=== PATIENT | female | born 1925 | race Caucasian/White ===

== ENCOUNTER 2016-09-18 20:36 | Inpatient (IN) ==
[2016-09-19] MEDS: ALPRAZolam 1 MG TABLET PO PRN ×2 (03:51→19:41)
[2016-09-19] MEDS: *HR* Heparin 5,000 UNIT/ML VIAL SQ SCH ×2 (06:22→16:04)
[2016-09-19 06:32] LABS: BUN/Creatinine Ratio 23 (6-26); Blood Urea Nitrogen 19 mg/dL (7-20); Carbon Dioxide 27 mEq/L (19-29); Chloride 99 mEq/L (98-109); Glucose 102 mg/dL (70-99); Osmolality,Calculated 288 (280-300); Potassium 3.8 mEq/L (3.5-4.5); Sodium 138 mEq/L (136-145); eGFR For African Americans > 60 (> 60); eGFR For Non-African Americans > 60 (> 60)
[2016-09-19] MEDS ORDERED: Isosorbide MONOnitrate (24 HR) 30 MG TAB.ER.24H PO SCH (09:00)
[2016-09-19] MEDS: *HR* Amiodarone 200 MG TABLET PO SCH (09:42)
[2016-09-19] MEDS: Furosemide 40 MG/4 ML VIAL IVP SCH ×2 (09:42→16:04)
[2016-09-19] MEDS: Aspirin Enteric Coated 81 MG Tablet PO SCH (09:42)
--- NOTE | 2016-09-19 10:52 | ECHO - Doppler Report ---
Echocardiogram Name: Huong Scott Date of Study: 09/19/2016 Date: 1925 Ht: 61.0 in Medical Record#: [id number] Age: 89 Wt: 104.0 lb Gender: Female BSA: 1.43 Order #: [id number] Location: [facility] Room #: [id number] Reading Physician: Kady Pal DO Questioned Documents Examiner: Koffi Sanchez RN Ordering Physician: Tammy Anglin DO Primary Physician: Marbin Penn MD Indications: Congestive heart failure Impressions: LVEF 35%. Moderate global reduction in LV systolic function with increased LV wall thickness. Increased LV filling pressures. RV size appears normal. RV function is hypokinetic. Severe left atrial enlargement. Severe eccentric mitral regurgitation. Severe low gradient aortic stenosis. Mild pulmonic regurgitation. No pulmonary hypertension, although TR gradient is suboptimally obtained. Pleural effusion. Abnormal findings communicated to Dr. Hearn. Left Ventricular Wall Motion: Rest Echo Findings The apex, apical inferior, mid inferior, basal inferior, apical anterior, mid anterior, basal anterior, apical septal, mid inferior septal, basal inferior septal, apical lateral, mid anterior lateral, basal anterior lateral, mid anterior septal, mid inferior lateral, basal anterior septal and basal inferior lateral cisneros were hypokinetic. Findings: Study Quality * Technically adequate exam. ECG Findings * Normal sinus rhythm. Left Ventricle * LVEF 35%. * Increased LV wall thickness; not well measured on PLAX. * Increased LV filling pressures. Mitral Valve * No mitral stenosis. * Mild mitral annular calcification * Severe eccentric mitral regurgitation. Aortic Valve * Moderately calcified AV leaflets with severe reduction in leaflet excursion. * Severe low gradient aortic stenosis. MG 12 mmHg, DI 0.21, PRAVIN 0.66 cm2 * Trace aortic regurgitation. Aorta * Normally sized aortic root. Tricuspid Valve * Normal tricuspid valve structure. * Mild tricuspid regurgitation which may be underestimated. * Estimated RA pressure is 3 mmHg. * Estimated RVSP is 24 mmHg. * No pulmonary hypertension. Pulmonic Valve * Pulmonic valve is not well visualized. * No pulmonic stenosis. * Mild pulmonic regurgitation. Pulmonary Artery * Pulmonary artery not well visualized. Right Atrium * Normal right atrial size. Left Atrium * Severely dilated left atrium. Interatrial Septum * No evidence of PFO by color Doppler. IVC * Normal IVC dimensions and inspiratory collapse. Pericardium * Trivial anterior pericardial effusion. Right Ventricle * RV is normal in size. The distal segments are poorly visualized. The mid portion of the RV appears hypokinetic. Reduced Lat S Jef. History Years 25 Packs 1.5 Family History of CAD Congestive Heart Failure 09/21/2011 a Previous Echo was performed. Measurements: BP: 169/ 88 2D Normal Values IVSd: 1.10 cm 0.6 - 1.0 cm LVIDd: 5.20 cm 3.7 - 5.6 cm LVPWd: 1.10 cm 0.6 - 1.1 cm LVIDs: 3.90 cm 1.5 - 3.6 cm LA: 5.00 cm 2.0 - 4.0cm %FS: 23.50 cm >25 % LVOT Diam: 1.90 cm LA volume: 141 Mitral Valve Peak Velocity 1.41 m/sec Mean Velocity:.60 m/sec Peak Grad:8.00 mmHg Mean Grad:2.00 mmHg Valve Area:1.14 cm2 Peak E:.85 m/sec Peak A:.47 m/sec E/A Ratio:1.8 Peak E' Lat Jef:5.56 cm/s Peak E' Med Jef:2.73 cm/s E/E' Lat Ratio:15.4 E/E' Med Ratio:31.3 LVOT Peak Jef:.69 m/sec Mean Jef:.44 m/sec Peak Grad:2.00 mmHg Mean Grad:1.00 mmHg Aortic Valve Peak Jef:2.48 m/sec Mean Jef:1.64 m/sec Peak Grad:25.00 mmHg Mean Grad:12.00 mmHg Valve Area:.74 cm2 AI pressure Half-time: 762.00 msec Tricuspid Valve TV Regurg Peak Grad: 21.00mmHg TV Regurg Peak Jef: 2.31m/sec Updated by Kady Pal on 09/19/2016 10:04:07 AM electronically signed on 09/19/2016 10:49:12 AM with status of Final Wall Motion Sigala: 1=Normal, 2=Hypokinesis, 3=Akinesis, 4=Dyskinesis, 5=Aneurysmal, 6=Hyperkinetic, X=Not Visualized (Blank)=Missing
--- NOTE | 2016-09-19 14:47 | Cardiology Consult Note ---
Date of Encounter: 09/19/16 Time of Encounter: 14:37 Assessment and Plan (1) Acute systolic (congestive) heart failure Current Visit: Yes Status: Acute EF previously 50-55% in 2011. Echo this admission EF reduced to 35%, moderate global reduction in LV systolic function. Increased LV filling pressures. RV hypokinetic. Severely enlarged LA. Severe eccentric MR, severe low gradient , mild MI, no pulmonary hypertension , pleural effusion. BNP 4277. CXR with new moderate bilateral pleural effusions. Symptoms of worsening dyspnea, lower extremity edema. Recommend IV diuresis. Agree with 40mg Lasix IV BID. Recommend strict I/Os, Na and fluid restriction, daily weights. [facility] in 2012 minimal CAD. CHF/newly reduced EF likely secondary to her valvular disease/nonischemic. Discussed options of palliative/medical management vs. evaluation at tertiary facility ([facility]) regarding TAVR and MitraClip as outpt. Pt would like to think about it. Will also discuss with Dr. Jacy Pelletier for further recommendations. If pt decides on medical management, will consult palliative care. Continue BB and RAMILA-I. (2) Severe aortic stenosis Current Visit: Yes Status: Acute Low gradient severe on echo. MG 12mmHg, DI 0.21, PRAVIN 0.66cm2. Likely culprit of pt's syncope. Likely a poor candidate for surgical repair given her advanced age. Possibly candidate for TAVR. Discussed if she would be interested in pursuing this as outpt at tertiary facility. Pt considering. If she declines, will consult palliative. (3) Severe mitral regurgitation Current Visit: Yes Status: Acute Severe MR noted on echo. Could appear severe from and current CHF exacerbation. Poor surgical candidate, but would possibly be a candidate for MitraClip at tertiary facility. Pt considering if she wants this evaluation. (4) Atrial fibrillation Current Visit: No Status: Acute Records reviewed--appears to have been diagnosed 03/2016. On Amiodarone 200mg daily since that time. Telemetry review shows pt is maintaining SR. CHADSVASC score 7 (Age, HTN, CHF, Female). High falls risk given syncopal events and advanced age. Would recommend ASA only for now. Qualifiers: Atrial fibrillation type: paroxysmal Qualified Code(s): I48.0 - Paroxysmal atrial fibrillation (5) Chest pain Current Visit: Yes Status: Acute Exertional chest pain in setting of acute systolic CHF, Severe and severe MR. LHC 2012 minimal CAD. Does not require a repeat LHC at this time. If pt chooses to be evaluate for TAVR and possible MitraClip, tertiary facility would determine if LHC is warranted at that time in the pre-operative setting. On low dose nitrate. Will not increase given severe . Qualifiers: Chest pain type: unspecified Qualified Code(s): R07.9 - Chest pain, unspecified (6) Syncope Current Visit: No Status: Acute 2 episodes. Most recent 3 weeks ago. Likely related to severe . Plan as above. Medical management/palliative discussed vs. proceeding with evaluation at tertiary facility to discuss TAVR and possible MitraClip. Pt considering. Qualifiers: Syncope type: unspecified Qualified Code(s): R55 - Syncope and collapse (7) Elevated troponin Current Visit: No Status: Acute Borderline 3rd troponin of 0.04 in setting of acute CHF exacerbation and severe valvular dysfunction. Nondiagnostic for ACS. Secondary to demand ischemia. (8) Cardiomyopathy Current Visit: Yes Status: Acute EF 35%, likely nonischemic, related to severe valvular disease, but ischemic cause not ruled out. [facility] 2012 minimal CAD. BB, RAMILA-I. No LHC warranted at this time. If decides to pursue evaluation for valvular dysfunction, tertiary facility can decide if LHC is necessary. Qualifiers: Cardiomyopathy type: unspecified Qualified Code(s): I42.9 - Cardiomyopathy , unspecified Discussion w patient/family: The assessment and plan as outlined above was discussed with the patient and/or family members who expressed understanding and agreement. All questions were answered. Thank you for involving us in the care of your patient. Please call with any questions. I will discuss all the above with Dr. Jacy Pelletier and make changes as necessary. History of Present Illness Consult date: 09/19/16 Requesting physician: Reymundo Hearn Consult reason: CHF, valvular heart disease Chief complaint: Dyspnea, chest pain History of present illness: Ms. Scott is a 89 year old female with PMH of LLL carcinoma s/p LLL lobectomy, minimal CAD on LHC in 2011, HTN, HLD, anxiety, A-Fib on Amiodarone, PNA, CVA, TIA. She reported to [facility] earlier on the 10th, for fatigue, lightheadedness, dizziness, dyspnea and chest pain. She left AMA for a court date on the , then represented that evening after her court date. She admits to worsening dyspnea over the past 2 weeks, dizziness upon standing. She reports chest pain that started 5 days ago, sharp in nature, worse with exertion and improved with rest. Reports 7 lb weight gain last month, but lost 6 lbs this month. Chest pain free currently. She reports 2 syncopal episodes, most recent 3 weeks ago, which she can not recall any details of other than it was around 2AM when going to the bathroom. Reports lower extremity edema over the past month. She was found to have elevated BNP--4277 and CXR demonstrated cardiomegaly with new moderate bilateral pleural effusions and interstitial pulmonary edema suggestive of moderate CHF. Underlying consolidation from PNA in lung bases cannot be excluded. EF previously preserved in 2011. Echo resulted today shows decrease in EF to 35%, moderate global reduction in LV systolic function. Increased LV filling pressures. RV hypokinetic. Severely enlarged LA. Severe eccentric MR, severe low gradient , mild MI, no pulmonary hypertension, pleural effusion. Pt lives at home alone. is in a [place] [facility]. Reports friends help her with meals and a neighbor spends the night with her often. Past CV testing: [facility] 11/09/11: Mild-moderate pulmonary hypertension, minimal atherosclerotic CAD, EF 50-55%. Past Med Surg Social Fam HX - Past Medical History Medical history: arthritis, cancer, CHF, COPD, coronary artery disease, GERD, hyperlipidemia, hypertension, TIA Psychiatric history: anxiety - Past Surgical History Surgical History: orthopedic, other, other - Social History Smoking Status: Former smoker Smokeless Tobacco Status: No Alcohol use: occasionally Drug use: none - Family History Mother Living Status: Hx Family Cancer: Yes Father Name: Anand Ruiz Living Status: Age at : 79 Cause of : cancer Hx Family Cancer: Yes Medications and Allergies Aspirin [Lo-Dose Aspirin EC] 81 mg PO DAILY 03/11/16 [History] TraZODone 100 mg PO HS #0 tablet 03/15/16 [Rx] Amoxicillin [Amoxil] 500 mg PO TID #30 capsule 09/17/16 [Rx] Alprazolam [Xanax 1 MG Tablet] 2 mg PO HS #0 tablet 09/18/16 [Rx] Amiodarone [Cordarone] 200 mg PO DAILY 09/19/16 [History] Furosemide [Lasix] 10 mg PO DAILY 09/19/16 [History] Lisinopril 2.5 mg PO DAILY 09/19/16 [History] Metoprolol XL (24 HR) Succ [Toprol XL] 50 mg PO DAILY 09/19/16 [History] Potassium Chloride [K-Tab ER] 20 meq PO DAILY 09/19/16 [History] Allergies gabapentin [From Neurontin] Allergy (Verified 09/18/16 16:40) See Comments allergy listed; pt denies metronidazole [From Vandazole] Allergy (Verified 09/18/16 16:40) See Comments burning sensation. allergy listed; pt denies Nxbjnjg-Sqi-Ydf Reductase Inhibitor [Statins] Allergy (Verified 09/18/16 16:40) See Comments allergy listed; pt denies All Systems Review: A 10-system review of systems was performed and is negative for pertinent findings except as documented above in the HPI. - Constitutional Constitutional: fatigue, weakness - Cardiovascular Cardiovascular: as per HPI, chest pain with exertion, dyspnea at rest, dyspnea on exertion, leg edema, lightheadedness, syncope - Respiratory Respiratory: dyspnea - Neurological Neurological: dizziness, syncope Physical Examination Vital Signs, Last 4 Hours Temp Pulse Resp BP Pulse Ox 09/19/16 11:19 97.8 F 63 20 144/70 92 Vital Signs Temp Pulse Resp BP Pulse Ox 09/19/16 11:19 97.8 F 63 20 144/70 92 09/19/16 08:00 97.8 F 61 16 169/88 96 09/19/16 04:29 97.8 F 61 21 166/79 96 09/18/16 22:46 98.7 F 65 17 169/92 98 Intake and Output 09/18/16 09/19/16 09/19/16 23:59 07:59 15:59 Intake Total 50 / 50 Output Total 325 / 325 Balance -275 / -275 Intake: Oral 50 / 50 Output: Urine 325 / 325 Other: Meal Lunch Percent of Meal Consumed 50% Stool Size Moderate Stool Consistency formed # Bowel Movements 1 Weight 47.174 kg General: Conversant, No Apparent Distress HEENT: Atraumatic, Normocephaly, Mucus Membranes Moist Neck: Normal carotid pulses Cardiac: Reg Rate and Rhythm, Normal S1 and S2, Other (murmur noted) Lungs: Other (diminished, right basilar crackles.) Abdomen: Soft, Non-Tender Skin: No rashes noted on visualized skin Musculoskeletal: No Chest Wall Tenderness Extremities: No Clubbing, No Cyanosis, No Edema, Normal Pulses Results 09/19/16 05:37 Lab Results 09/19/16 05:37 Sodium 138 Potassium 3.8 Chloride 99 Carbon Dioxide 27 BUN 19 Creatinine 0.83 Glucose 102 H Calcium 9.0 BMP 09/19/16 Range/Units 05:37 Sodium 138 (136-145) mEq/L Potassium 3.8 (3.5-4.5) mEq/L Chloride 99 (98-109) mEq/L Carbon Dioxide 27 (19-29) mEq/L BUN 19 (7-20) mg/dL Creatinine 0.83 (0.57-1.11) mg/dL Glucose 102 H (70-99) mg/dL Calcium 9.0 (8.6-10.8) mg/dL Active Medications Acetaminophen/Hydrocodone Bitart ([place] 5-325 Mg) 1 tab PO Q8HR PRN PRN Reason: Moderate Pain Stop: 03/21/17 01:52 Alprazolam (Xanax) 2 mg PO HS PRN; Protocol PRN Reason: Anxiety Stop: 03/21/17 02:01 Last Admin: 09/19/16 03:51 Dose: 2 mg Amiodarone HCl (Cordarone) 200 mg PO DAILY GUANACO Stop: 03/21/17 09:01 Last Admin: 09/19/16 09:42 Dose: 200 mg Aspirin (Aspirin Ec) 81 mg PO DAILY GUANACO Stop: 03/21/17 09:01 Last Admin: 09/19/16 09:42 Dose: 81 mg Carvedilol (Coreg) 3.125 mg PO BIDWM GUANACO Stop: 03/21/17 08:01 Last Admin: 09/19/16 09:42 Dose: 3.125 mg Furosemide (Lasix) 40 mg IVP BIDDIURETIC GUANACO Stop: 03/21/17 08:01 Last Admin: 09/19/16 09:42 Dose: 40 mg Heparin Sodium (Porcine) (Heparin) 5,000 unit SQ Q12HCO GUANACO Stop: 03/21/17 06:01 Last Admin: 09/19/16 06:22 Dose: 5,000 unit Isosorbide Mononitrate (Imdur) 30 mg PO DAILY GUANACO Stop: 03/21/17 09:01 Last Admin: 09/19/16 09:42 Dose: 30 mg Lisinopril (Zestril) 2.5 mg PO DAILY GUANACO Stop: 03/21/17 09:01 Last Admin: 09/19/16 09:42 Dose: 2.5 mg Trazodone HCl (Trazodone) 150 mg PO HS PRN PRN Reason: Insomnia Stop: 03/21/17 02:01 - Imaging and Cardiology Chest Xray: report reviewed Echo: report reviewed Cardiac cath: report reviewed - EKG Interpretation EKG results cardiology: personally reviewed (Sinus Tach, rate 100), other (24 hour tele AVG HR 65, SR. No significant pauses or arrhythmias.) Consult Discharge Plan - Plan Referrals: Marbin Penn MD [Primary Care Provider] -
--- NOTE | 2016-09-19 16:02 | Event Note ---
<Harriett Cespedes - Last Filed: 09/19/16 15:45> Date of Encounter: 09/19/16 Time of Encounter: 15:45 Patient seen and examined. Denies chest pain at this time. H&P located under Joffre visit A/P 1. CHF - Echocardiogram: EF 35%. Moderate global reduction in LV systolic function with increased wall thickness. Increased LV filling pressures. Right ventricle hypokinetic. Severe left atrial enlargement. Severe eccentric mitral regurgitation. Severe low gradient aortic stenosis. Mild pulmonic regurgitation. cardiology on board, appreciate recommendations IV lasix 40 mg BID continue ASA, statin coreg 3.125 mg BID imdur 30 mg daily 2. HTN 3. h/o a fib - currently NSR <Reymundo Hearn - Last Filed: 09/19/16 18:26> Date of Encounter: 09/19/16 Pt admitted early this AM with chest pain and exacerbation of CHF. Currently she is resting comfortably. Echo results reviewed. Appreciate cardiology input. Pt making decision on plan of care. Will continue current plan of management as at admission.
[2016-09-19] MEDS: traZODone 50 MG TABLET PO PRN (19:42)
[2016-09-19] MEDS: *HR* HYDROcodone/Acet 5/325 mg TABLET PO PRN (19:42)
[2016-09-20] MEDS: *HR* Heparin 5,000 UNIT/ML VIAL SQ SCH ×2 (05:11→16:39)
[2016-09-20] MEDS: *HR* HYDROcodone/Acet 5/325 mg TABLET PO PRN ×3 (05:59→15:25)
[2016-09-20 08:48] LABS: Basophils # 0.1 K/mcL (0.0-0.2); Basophils % 0.7 %; Eosinophils # 0.3 K/mcL (0.0-0.6); Eosinophils % 3.4 %; Hematocrit 39.6 % (35.3-44.9); Hemoglobin 12.7 g/dL (11.5-15.4); Immature Granulocytes % 0.4 % (0-4); Lymphocytes # 1.3 K/mcL (0.6-4.6); Lymphocytes % 17.8 %; Mean Corpuscular HGB Conc 32.1 g/dL (31.6-35.5); Mean Corpuscular Hemoglobin 30.4 pg (28.0-33.3); Mean Corpuscular Volume 94.7 fL (83.0-100.0); Monocytes # 0.4 K/mcL (0.0-1.3); Monocytes % 5.7 %; Neutrophils # 5.3 K/mcL (1.6-8.9); Nucleated Red Blood Cells 0.3 /100 WBC (0); Platelet Count 230 K/mcL (140-400); Red Blood Count 4.18 M/mcL (3.82-4.97); Red Cell Distribution Width 14.8 % (11.5-14.5)
[2016-09-20] MEDS: ALPRAZolam 1 MG TABLET PO PRN ×2 (08:54→20:52)
[2016-09-20] MEDS: Aspirin Enteric Coated 81 MG Tablet PO SCH (08:54)
[2016-09-20] MEDS: Furosemide 40 MG/4 ML VIAL IVP SCH ×2 (08:55→16:39)
[2016-09-20] MEDS: *HR* Amiodarone 200 MG TABLET PO SCH (08:55)
[2016-09-20 09:00] LABS: BUN/Creatinine Ratio 25 (6-26); Blood Urea Nitrogen 26 mg/dL (7-20); Calcium 9.1 mg/dL (8.6-10.8); Carbon Dioxide 32 mEq/L (19-29); Chloride 96 mEq/L (98-109); Glucose 94 mg/dL (70-99); Osmolality,Calculated 289 (280-300); Potassium 3.8 mEq/L (3.5-4.5); Sodium 137 mEq/L (136-145); eGFR For African Americans > 60 (> 60); eGFR For Non-African Americans 50 (> 60)
--- NOTE | 2016-09-20 09:07 | Internal Med Progress Note ---
<Harriett Cespedes - Last Filed: 09/20/16 09:03> Date of Encounter: 09/20/16 Time of Encounter: 09:04 - Assessment and plan (1) Acute systolic (congestive) heart failure Current Visit: Yes Status: Acute Assessment and plan: Echocardiogram: EF 35%. Moderate global reduction in LV systolic function with increased wall thickness. Increased LV filling pressures. Right ventricle hypokinetic. Severe left atrial enlargement. Severe eccentric mitral regurgitation. Severe low gradient aortic stenosis. Mild pulmonic regurgitation. cardiology on board, appreciate recommendations Patient has chosen palliative/medical management, code status changed to DNR- CCA. Patient has goal of living to end of the month to see her great great grandson one more time. palliative consult ordered, appreciate recommendations Bladder scan ordered, although I&O show urine production. (2) Cardiomyopathy Current Visit: Yes Status: Acute Assessment and plan: EF 35%, likely nonischemic, related to severe valvular disease, but ischemic cause not ruled out. [facility] 2011 minimal CAD. BB, RAMILA-I. LHC not warranted at this time. Qualifiers: Cardiomyopathy type: unspecified Qualified Code(s): I42.9 - Cardiomyopathy , unspecified (3) Weakness generalized Current Visit: No Status: Acute Assessment and plan: ensure with meals (4) Atrial fibrillation Current Visit: No Status: Chronic Assessment and plan: history of a fib patient in NSR Qualifiers: Atrial fibrillation type: paroxysmal Qualified Code(s): I48.0 - Paroxysmal atrial fibrillation (5) Essential hypertension Current Visit: No Status: Acute - Subjective Interval history: Patient complaining of feeling like she needs to urinate but can't; hasn't urinated since last night. - Constitutional Vitals: Temp Pulse Resp BP Pulse Ox 97.5 F L 51 15 117/63 94 09/20/16 06:18 09/20/16 06:18 09/20/16 06:18 09/20/16 06:18 09/20/16 06:18 General appearance: Present: A&O X 3, underweight, answers questions appropriately - Head Head exam: Present: atraumatic, normocephalic - Eye Eye exam: Present: EOMI, PERRL, sclera anicteric - Neck Neck exam general surgery: Present: normal inspection - Respiratory Respiratory exam: Present: CTAB - Cardiovascular Cardiovascular exam: Present: RRR, +S1, +S2, systolic murmur - GI/Abdominal GI/Abdominal exam: Present: normal bowel sounds, soft. Absent: tenderness - Extremities Exam Extremities exam: Present: warm. Absent: pedal edema, tenderness Additional comments: dorsalis pedis pulses 2/4 - Neurological Exam Neurological exam: Present: alert, oriented X3, no focal deficits - Skin Skin exam: Present: dry, warm Internal Medicine: Result - Labs CBC & Chem 7: 09/20/16 08:25 09/20/16 08:25 Labs: Short CBC 09/20/16 Range/Units 08:25 WBC 7.4 (4.3-11.1) K/mcL Hgb 12.7 (11.5-15.4) g/dL Hct 39.6 (35.3-44.9) % Plt Count 230 (140-400) K/mcL Neutrophils # 5.3 (1.6-8.9) K/mcL BMP 09/20/16 08:25 Sodium 137 Potassium 3.8 Chloride 96 L Carbon Dioxide 32 H BUN 26 H Creatinine 1.03 Glucose 94 Calcium 9.1 Consult Discharge Plan - Plan Instructions: Heart Failure (DC), Atrial Fibrillation (DC), Chest Pain (DC), Pacemaker (DC), Mitral Regurgitation (DC), Mitral Regurgitation (GEN), Aortic Stenosis (DC), Aortic Stenosis (GEN), Chronic Hypertension (DC), Anemia (GEN), Pneumonia (DC) Referrals: Marbin Penn MD [Primary Care Provider] - Cristopher Khan DO [Partnered Physician] - 10/02/16 12:30 pm (in [place] ) <Reymundo Hearn - Last Filed: 09/20/16 17:22> Date of Encounter: 09/20/16 - Assessment and plan (1) Acute systolic (congestive) heart failure Current Visit: Yes Status: Acute (2) Severe aortic stenosis Current Visit: Yes Status: Acute Assessment and plan: Severe valve disease. (3) Severe mitral regurgitation Current Visit: Yes Status: Acute (4) Chest pain Current Visit: Yes Status: Acute Qualifiers: Chest pain type: other chest pain Qualified Code(s): R07.89 - Other chest pain; R07.8 - Other chest pain (5) Essential hypertension Current Visit: No Status: Acute (6) Anemia Current Visit: Yes Status: Chronic Qualifiers: Anemia type: other cause Other causes of anemia: chronic disease, other Qualified Code(s): D63.8 - Anemia in other chronic diseases classified elsewhere - Constitutional Vitals: Temp Pulse Resp BP Pulse Ox 97.5 F L 53 14 117/68 97 09/20/16 15:00 09/20/16 15:00 09/20/16 15:00 09/20/16 15:00 09/20/16 15:00 Internal Medicine: Result - Labs CBC & Chem 7: 09/20/16 08:25 09/20/16 08:25 Labs: Short CBC 09/20/16 Range/Units 08:25 WBC 7.4 (4.3-11.1) K/mcL Hgb 12.7 (11.5-15.4) g/dL Hct 39.6 (35.3-44.9) % Plt Count 230 (140-400) K/mcL Neutrophils # 5.3 (1.6-8.9) K/mcL BMP 09/20/16 08:25 Sodium 137 Potassium 3.8 Chloride 96 L Carbon Dioxide 32 H BUN 26 H Creatinine 1.03 Glucose 94 Calcium 9.1 - Attending Attestation I examined this patient and my medical decision-making was reviewed with the Resident Physician on 09/20/16. I agree with the documented findings, disposition and treatment plan as described except to the extent set forth below. Ms. Scott is currently hospitalized for acute exac chr systolic heart failure with valvular disease. She is moderate to high risk due to potential for cardiac complications. Ms. Scott has decided to have no cardiac intervention. She is very tired. Denies pain. Has some dyspnea with movement. No fever or chills. No GI symptoms. Exam Alert. Comfortable Fatigued Heart distant and regular with murmur Lungs diminished Edema present I/P 1. Acute exac chronic syst heart failure 2. Severe aortic stenosis 3. Severe mitral regurg Further diagnoses and plan as above.
--- NOTE | 2016-09-20 09:16 | Cardiology Progress Note ---
Date of Encounter: 09/20/16 Time of Encounter: 09:14 Assessment and Plan (1) Acute systolic (congestive) heart failure Current Visit: Yes Status: Acute EF previously 50-55% in 2011. Echo this admission EF reduced to 35%, moderate global reduction in LV systolic function. Increased LV filling pressures. RV hypokinetic. Severely enlarged LA. Severe eccentric MR, severe low gradient , mild AR, no pulmonary hypertension , pleural effusion. BNP 4277. CXR with new moderate bilateral pleural effusions. Symptoms of worsening dyspnea, lower extremity edema. Continue IV diuresis. Agree with 40mg Lasix IV BID. Recommend strict I/Os, Na and fluid restriction, daily weights. Transition to PO Lasix maintenance dosing prior to discharge. [facility] in 2011 minimal CAD. CHF/newly reduced EF likely secondary to her valvular disease/nonischemic. Discussed options of palliative/medical management vs. evaluation at tertiary facility ([facility]) regarding TAVR. Pt prefers Palliative care route and to be made comfortable with goal to live until the end of the month to see her grandson. Palliative care consulted. Code status changed to DNR-CCA. Continue BB and RAMILA-I. Cardiology signing off. Reconsult PRN. Will schedule outpt follow-up. (2) Severe aortic stenosis Current Visit: Yes Status: Acute Low gradient severe on echo. MG 12mmHg, DI 0.21, PRAVIN 0.66cm2. Likely culprit of pt's syncope. Likely a poor candidate for surgical repair given her advanced age. Discussed possibility of TAVR at [facility]. Pt wishes to change code status to DNR-CCA and see palliative care. Not interested in procedures. (3) Severe mitral regurgitation Current Visit: Yes Status: Acute Severe MR noted on echo. Could appear severe from and current CHF exacerbation. Poor surgical candidate, not a candidate for MitraClip due to type of MR. Palliative care. (4) Atrial fibrillation Current Visit: No Status: Chronic Records reviewed--appears to have been diagnosed 03/2016. On Amiodarone 200mg daily since that time. Telemetry review shows pt is maintaining SR. CHADSVASC score 7 (Age, HTN, CHF, Female). High falls risk given syncopal events and advanced age. Would recommend ASA only. Qualifiers: Atrial fibrillation type: paroxysmal Qualified Code(s): I48.0 - Paroxysmal atrial fibrillation (5) Chest pain Current Visit: Yes Status: Acute Exertional chest pain in setting of acute systolic CHF, Severe and severe MR. [facility] 2011 minimal CAD. Pt wants medical management/palliative. No invasive evaluation. Qualifiers: Chest pain type: unspecified Qualified Code(s): R07.9 - Chest pain, unspecified (6) Syncope Current Visit: No Status: Acute 2 episodes. Most recent 3 weeks ago. Likely related to severe . Plan as above. Medical management/palliative care. Qualifiers: Syncope type: unspecified Qualified Code(s): R55 - Syncope and collapse (7) Elevated troponin Current Visit: No Status: Acute Borderline 3rd troponin of 0.04 in setting of acute CHF exacerbation and severe valvular dysfunction. Nondiagnostic for ACS. Secondary to demand ischemia. (8) Cardiomyopathy Current Visit: Yes Status: Acute EF 35%, likely nonischemic, related to severe valvular disease, but ischemic cause not ruled out. [facility] 2011 minimal CAD. BB, RAMILA-I. Qualifiers: Cardiomyopathy type: unspecified Qualified Code(s): I42.9 - Cardiomyopathy , unspecified Discussion w patient/family: The assessment and plan as outlined above was discussed with the patient and/or family members who expressed understanding and agreement. All questions were answered. Thank you for involving us in the care of your patient. Please call with any questions. I will discuss all the above with Dr. Jacy Pelletier and make changes as necessary. Subjective Principal diagnosis: CHF, valvular dysfunction Interval history: Pt denies any significant dyspnea this AM. Denies any chest pain. No acute complaints. Objective Vital Signs, Last 4 Hours Temp Pulse Resp BP Pulse Ox 09/20/16 06:18 97.5 F L 51 15 117/63 94 Vital Signs Temp Pulse Resp BP Pulse Ox 09/20/16 06:18 97.5 F L 51 15 117/63 94 09/20/16 03:00 97.4 F L 54 18 97/47 94 09/20/16 00:00 97.1 F L 57 17 104/65 96 09/19/16 20:00 97.6 F 49 18 122/66 96 09/19/16 11:19 97.8 F 63 20 144/70 92 Intake and Output 09/19/16 09/20/16 09/20/16 23:59 07:59 15:59 Intake Total 220 / 220 120 / 120 Output Total 100 / 100 50 / 50 Balance 120 / 120 70 / 70 Intake: Oral 220 / 220 120 / 120 Output: Urine 100 / 100 50 / 50 Other: Meal Dinner Percent of Meal Consumed 10% Weight 43.7 kg Patient Weight 09/20/16 23:59 Weight 43.7 kg General: Conversant, No Apparent Distress HEENT: Atraumatic, Normocephaly, Mucus Membranes Moist Neck: No JVD, Normal carotid pulses Cardiac: Reg Rate and Rhythm, Normal S1 and S2, No Murmur Lungs: Other (diminished) Neuro: Alert and responsive, No focal deficits noted Abdomen: Soft, Non-Tender Skin: No rashes noted on visualized skin Musculoskeletal: No Chest Wall Tenderness Extremities: No Clubbing, No Cyanosis, No Edema, Normal Pulses Results 09/20/16 08:25 09/20/16 08:25 Lab Results 09/20/16 09/20/16 08:25 08:25 WBC 7.4 Hgb 12.7 Hct 39.6 Plt Count 230 Sodium 137 Potassium 3.8 Chloride 96 L Carbon Dioxide 32 H BUN 26 H Creatinine 1.03 Glucose 94 Calcium 9.1 Short CBC 09/20/16 Range/Units 08:25 WBC 7.4 (4.3-11.1) K/mcL Hgb 12.7 (11.5-15.4) g/dL Hct 39.6 (35.3-44.9) % Plt Count 230 (140-400) K/mcL Neutrophils # 5.3 (1.6-8.9) K/mcL BMP 09/20/16 Range/Units 08:25 Sodium 137 (136-145) mEq/L Potassium 3.8 (3.5-4.5) mEq/L Chloride 96 L (98-109) mEq/L Carbon Dioxide 32 H (19-29) mEq/L BUN 26 H (7-20) mg/dL Creatinine 1.03 (0.57-1.11) mg/dL Glucose 94 (70-99) mg/dL Calcium 9.1 (8.6-10.8) mg/dL Active Medications Acetaminophen/Hydrocodone Bitart (Vian 5-325 Mg) 1 tab PO Q8HR PRN PRN Reason: Moderate Pain Stop: 03/21/17 01:52 Last Admin: 09/20/16 05:59 Dose: 1 tab Alprazolam (Xanax) 2 mg PO HS PRN; Protocol PRN Reason: Anxiety Stop: 03/21/17 02:01 Last Admin: 09/20/16 08:54 Dose: 2 mg Amiodarone HCl (Cordarone) 200 mg PO DAILY GUANACO Stop: 03/21/17 09:01 Last Admin: 09/20/16 08:55 Dose: 200 mg Aspirin (Aspirin Ec) 81 mg PO DAILY GUANACO Stop: 03/21/17 09:01 Last Admin: 09/20/16 08:54 Dose: 81 mg Carvedilol (Coreg) 3.125 mg PO BIDWM GUANACO Stop: 03/21/17 08:01 Last Admin: 09/20/16 08:54 Dose: 3.125 mg Furosemide (Lasix) 40 mg IVP BIDDIURETIC GUANACO Stop: 03/21/17 08:01 Last Admin: 09/20/16 08:55 Dose: 40 mg Heparin Sodium (Porcine) (Heparin) 5,000 unit SQ Q12HCO GUANACO Stop: 03/21/17 06:01 Last Admin: 09/20/16 05:11 Dose: 5,000 unit Lisinopril (Zestril) 2.5 mg PO DAILY [facility] Stop: 03/21/17 09:01 Last Admin: 09/20/16 08:55 Dose: 2.5 mg Trazodone HCl (Trazodone) 150 mg PO HS PRN PRN Reason: Insomnia Stop: 03/21/17 02:01 Last Admin: 09/19/16 19:42 Dose: 150 mg - Imaging and Cardiology Echo: report reviewed - EKG Interpretation EKG results cardiology: other (24 hour tele AVG HR) Consult Discharge Plan - Plan Referrals: Marbin Penn MD [Primary Care Provider] -
--- NOTE | 2016-09-20 13:15 | Palliative - Consult Note ---
Date of Encounter: 09/20/16 Time of Encounter: 12:00 - Assessment and Plan (1) Goals of care, counseling/discussion Current Visit: Yes Status: Acute Assessment and plan: Patient sitting in chair. Agrees to having conversation. Patient verbalizes that she has a weak heart and only desires to have symptom management and quality of life with family. She reports having 2 sons - Anjana lives in [place], [place], Yoni lives in [place] and Daughter Iza lives in [place]. She reports only being in contact with Anjana. She reports being estranged from her daughter and that Yoni has not been home for years from [place]. She currently resides in her own home with Passport assistance and assistance from her many friends. She reports that her is in an ECF after having suffered a broken hip. She reports having a restraining order against him because he is mean to her. She reports that she spoke to him 2 weeks ago. She reports having a POA - Fermin Barnes. She is unable to tell me any contact information for her children or POA at this time because she doesn't have her address book. She requested that I not contact Iza because they are not talking. The patient desires to return home with her passport services. At baseline, she ambulates without assist and tolerates eating and shopping without SOB. AT this time, the patient has an EF of 35%, she is not SOB at rest and has responded to medical medication adjustment. She is not a candidate for surgical intervention for her valve disease per Cardiology. The patient desires symptom management. She agrees to adding palliative care to her home situation. I would recommend a Pt/OT consult to evaluate her ability to return home safely. Code Status DNRCC- A. I did discuss intubation and mechanical ventilation and she agrees to add a DNI to status. I have informed nursing to obtain contact information for the POA and Son once JERZY makes a visit. The patient reports that he is expected to visit today. (2) Weakness generalized Current Visit: Yes Status: Acute Assessment and plan: Obtain PT/OT consult for evaluation. Patient was very clear that she did not want to go to ECF. (3) Anxiety about health Current Visit: No Status: Acute Assessment and plan: Patient anxoius over current changes in heart function. Patient currently receiving Xanax at bedtime and she reports that this is effective. (4) CHF (congestive heart failure) Current Visit: Yes Status: Chronic Assessment and plan: Medical management per Cardiology Qualifiers: Congestive heart failure type: systolic Congestive heart failure chronicity : chronic Qualified Code(s): I50.22 - Chronic systolic (congestive) heart failure (5) Essential hypertension Current Visit: No Status: Acute Assessment and plan: Currently on Lisinopril. Palliative-CN HPI - Data of Consult Patient: new to practice Consult date: 09/20/16 Requesting Physician: Kvng Doran Primary Care Provider: Marbin Penn MD - Consult Narrative Palliative Care/Comfort Measures: Palliative care Reason for consult: Goals of Care History of present illness: Ms. Scott is a 89 year old female admitted with CHF. Cardiology notes reviewed. Patient previous EF 50-55%. Echo this admit is reduced to 35%, moderate global reduction in LV systolic function. Severe Aortic stenosis. Increased LV filling pressures. RV hypokinetic. Severely enlarged LA. Admit BNP 4277. Upon this consult, the patient is alert and oriented sitting in the chair eating lunch. She denies complaints of chest pain or SOB. Patient is on RA and denies using oxygen at home. She reports that she is currently living alone and is cared for by friends. This palliative care consult is for goals of care planning. CC: Reymundo Hearn, DO Past Med Surg Social Fam HX - Past Medical History Source: patient, old records reviewed Medical history: arthritis, cancer, CHF, COPD, coronary artery disease, GERD, hyperlipidemia, hypertension, TIA Psychiatric history: anxiety - Past Surgical History Surgical History: orthopedic, other, other - Social History Smoking Status: Former smoker Smokeless Tobacco Status: No Alcohol use: occasionally Drug use: none Occupational status: retired Current living situation: Home (friends assist with care) Recent Out of Country Travel Within the Last 8 Weeks: No Exposure or Possible Exposure to Illness During Travel: No - Family History Mother Living Status: Hx Family Cancer: Yes Father Name: Aannd Ruiz Living Status: Age at : 79 Cause of : cancer Hx Family Cancer: Yes Medications and Allergies Aspirin [Lo-Dose Aspirin EC] 81 mg PO DAILY 03/11/16 [History] TraZODone 100 mg PO HS #0 tablet 03/15/16 [Rx] Amoxicillin [Amoxil] 500 mg PO TID #30 capsule 09/17/16 [Rx] Alprazolam [Xanax 1 MG Tablet] 2 mg PO HS #0 tablet 09/18/16 [Rx] Amiodarone [Cordarone] 200 mg PO DAILY 09/19/16 [History] Furosemide [Lasix] 10 mg PO DAILY 09/19/16 [History] Lisinopril 2.5 mg PO DAILY 09/19/16 [History] Metoprolol XL (24 HR) Succ [Toprol XL] 50 mg PO DAILY 09/19/16 [History] Potassium Chloride [K-Tab ER] 20 meq PO DAILY 09/19/16 [History] Allergies gabapentin [From Neurontin] Allergy (Verified 09/18/16 16:40) See Comments allergy listed; pt denies metronidazole [From Vandazole] Allergy (Verified 09/18/16 16:40) See Comments burning sensation. allergy listed; pt denies Ewdgyet-Kcx-Lfx Reductase Inhibitor [Statins] Allergy (Verified 09/18/16 16:40) See Comments allergy listed; pt denies All systems: reviewed and no additional remarkable complaints except as stated ( SOB, sycope and chest pain) - Constitutional Constitutional ROS PAL: fatigue - EENT Eyes: requires corrective lenses - Cardiovascular Cardiovascular ROS: chest pain, dyspnea on exertion, syncope - Respiratory Respiratory: as per HPI - Genitourinary Palliative ROS female: urinary frequency (from medication) - Musculoskeletal Musculoskeletal ROS IM: muscle weakness - Neurological Neurological ROS: weakness - Psychiatric Psychiatric general PM: anxiety Palliative Care-Exam - Constitutional Vitals: Temp Pulse Resp BP Pulse Ox 97.7 F 47 15 91/46 96 09/20/16 11:00 09/20/16 11:00 09/20/16 11:00 09/20/16 11:00 09/20/16 11:00 General appearance: Present: cooperative, no acute distress - Head Head Exam: Present: atraumatic, normal inspection, normocephalic - Eye Eye exam: Present: PERRL Pupils: Present: PERRL - ENT ENT exam: Present: mucous membranes moist - Neck Neck exam: Present: full ROM - Respiratory Respiratory exam: Present: decreased breath sounds - Expanded Respiratory Exam Location: decreased breath sounds: Left, Right, Lower - Cardiovascular Cardiovascular exam: Present: clicks, +S1, +S2 - Expanded Cardiovascular Exam Type of murmur: Present: systolic Location: Present: RUSB Intensity: 3/6 Peripheral pulses: 1+: Femoral (L) PM, Femoral (R) PM, Posterior Tibialis (L), Posterior Tibialis (R), 2+: Carotid (L) PM, Carotid (R) PM, Radial (L), Radial ( R), Dorsalis Pedis (L) PM, Dorsalis Pedis (R) PM - GI/Abdominal Exam GI/Abdominal exam: Present: soft - Rectal Rectal exam: Present: deferred - Extremities Exam Extremities exam: Present: full ROM - Expanded Upper Extremities Exam Elbow exam: Present: full ROM Hand wrist exam: Present: full ROM - Neurological Exam Neurological exam: Present: alert, CN II-XII intact, oriented X3 - Psychiatric Psychiatric exam: Present: normal affect - Skin Skin exam: Present: pallor, warm Internal Medicine - CN: Reslt - Labs CBC & Chem 7: 09/20/16 08:25 09/20/16 08:25 Labs: Short CBC 09/20/16 Range/Units 08:25 WBC 7.4 (4.3-11.1) K/mcL Hgb 12.7 (11.5-15.4) g/dL Hct 39.6 (35.3-44.9) % Plt Count 230 (140-400) K/mcL Neutrophils # 5.3 (1.6-8.9) K/mcL BMP 09/20/16 08:25 Sodium 137 Potassium 3.8 Chloride 96 L Carbon Dioxide 32 H BUN 26 H Creatinine 1.03 Glucose 94 Calcium 9.1 Consult Discharge Plan - Plan Instructions: Heart Failure (DC), Atrial Fibrillation (DC), Chest Pain (DC), Pacemaker (DC), Mitral Regurgitation (DC), Mitral Regurgitation (GEN), Aortic Stenosis (DC), Aortic Stenosis (GEN), Chronic Hypertension (DC), Anemia (GEN), Pneumonia (DC) Referrals: Marbin Penn MD [Primary Care Provider] - Cristopher Khan DO [Partnered Physician] - 10/02/16 12:30 pm (in [place] ) Palliative Quality Palliative Quality: Screen for Code Status: Yes, Screen for Goals of Care: Yes, Screen for Pain: Yes, If Pain Regimen Started, Initiate Bowel Regimen: Yes, Screen for Nausea/Vomitting: Yes Code Status: 09/19/16 15:34 Resuscitation Status: Active [RES] Routine Comment: Resuscitation Status: Full Code 09/19/16 17:24 DNR [Resuscitation Status: Active] [RES] Routine Comment: Palliative consulted. Pt chooses to be DNR. Resuscitation Status: DNR-Comfort Care-Arrest
[2016-09-20] MEDS: traZODone 50 MG TABLET PO PRN (20:52)
[2016-09-21] MEDS: *HR* Heparin 5,000 UNIT/ML VIAL SQ SCH (05:31)
[2016-09-21] MEDS: Furosemide 40 MG/4 ML VIAL IVP SCH (09:10)
[2016-09-21] MEDS: *HR* HYDROcodone/Acet 5/325 mg TABLET PO PRN (09:10)
[2016-09-21] MEDS: Aspirin Enteric Coated 81 MG Tablet PO SCH (09:10)
[2016-09-21] MEDS: *HR* Amiodarone 200 MG TABLET PO SCH (09:11)
--- NOTE | 2016-09-21 09:53 | Discharge Summary ---
<Harriett Cespedes - Last Filed: 09/21/16 14:12> Date of Encounter: 09/21/16 Time of Encounter: 09:47 - Discharge Diagnosis (1) Acute systolic (congestive) heart failure Priority: Primary Status: Acute (2) Cardiomyopathy Priority: Primary Status: Acute Qualifiers: Cardiomyopathy type: unspecified Qualified Code(s): I42.9 - Cardiomyopathy , unspecified (3) Weakness generalized Priority: Primary Status: Acute (4) Severe protein-calorie malnutrition Priority: Primary Status: Chronic (5) Severe aortic stenosis Priority: Primary Status: Acute (6) Severe mitral regurgitation Priority: Primary Status: Acute (7) Essential hypertension Priority: Secondary Status: Acute (8) Atrial fibrillation Priority: Secondary Status: Chronic Qualifiers: Atrial fibrillation type: paroxysmal Qualified Code(s): I48.0 - Paroxysmal atrial fibrillation - Discharge Medications Prescriptions: Carvedilol [Coreg] 3.125 mg PO BIDWM #60 tablet Home Medications: Aspirin [Lo-Dose Aspirin EC] 81 mg PO DAILY 03/11/16 [History] TraZODone 100 mg PO HS #0 tablet 03/15/16 [Rx] Amoxicillin [Amoxil] 500 mg PO TID #30 capsule 09/17/16 [Rx] Amiodarone [Cordarone] 200 mg PO DAILY 09/19/16 [History] Furosemide [Lasix] 10 mg PO DAILY 09/19/16 [History] Lisinopril 2.5 mg PO DAILY 09/19/16 [History] Metoprolol XL (24 HR) Succ [Toprol Xl] 50 mg PO DAILY 09/19/16 [History] Potassium Chloride [K-Tab ER] 20 meq PO DAILY 09/19/16 [History] Carvedilol [Coreg] 3.125 mg PO BIDWM #60 tablet 09/21/16 [Rx] Allergies/Adverse Reactions: Allergies gabapentin [From Neurontin] Allergy (Verified 09/18/16 16:40) See Comments allergy listed; pt denies metronidazole [From Vandazole] Allergy (Verified 09/18/16 16:40) See Comments burning sensation. allergy listed; pt denies Lswwfxa-Mwx-Haj Reductase Inhibitor [Statins] Allergy (Verified 09/18/16 16:40) See Comments allergy listed; pt denies Procedures/tests Complete & Pending: Procedures Performed prior 72 hours Category Date Time Status ECG 12 lead ECG [ECG] AM 0600 Y 09/19/16 06:00 Ordered EV echocardiogram Routine Y 09/19/16 01:51 Completed Date of admission: 09/19/16 16:17 Primary care physician: Marbin Penn MD Consults: 09/19/16 01:47 Consult to Nurse Navigator [CONS] Routine Comment: 09/19/16 11:46 Consult to Cardiology [CONS] Routine Comment: Consulting Provider: Cardiology Ana Reason for Consult: ABNORMAL ECHO Call Completed: Yes 09/19/16 17:20 Consult to Palliative Care [CONS] Routine Comment: Pt wants to be DNR. CHF, Severe , severe MR. Consulting Provider: Palliative Care [place] 09/21/16 08:47 Consult to Physical Therapy [CONS] Stat Comment: palliative discharge home, plan of care OT [Consult to Occupational Therapy] [CONS] Stat Comment: palliative discharge home, plan of care Discharging clinician: Harriett Cespedes Anticipated date of discharge: 09/21/16 - Patient Status Disposition: Home Health Service Condition: Fair Overall status at discharge: patient is progressing back to baseline - Discharge Instructions Instructions: Heart Failure (DC), Atrial Fibrillation (DC), Chest Pain (DC), Pacemaker (DC), Mitral Regurgitation (DC), Mitral Regurgitation (GEN), Aortic Stenosis (DC), Aortic Stenosis (GEN), Syncope (DC), Chronic Hypertension (DC), Anemia (GEN), Anxiety (DC), Pneumonia (DC) Follow Up With: Marbin Penn MD [Primary Care Provider] - 09/25/16 1:20 pm Cristopher Khan DO [Partnered Physician] - 10/02/16 12:30 pm (in [place] ) - Diet and Activity Diet: regular diet Interval History: Patient states that she is very weak but ready to go home. She does not want to go to rehab to get stronger before going home. Hospital course: Ms. Scott is a 89 year old female admitted for acute CHF. Echocardiogram showed cardiomyopathy with EF 35%, severe aortic stenosis, and severe mitral regurgitation. With this information, she decided on medical management/ palliative care rather than surgical management. Cardiology maximized medications to manage heart failure and palliative met with patient to discuss goals of care - it was decided she would like palliative care added to her current home health care plan on discharge. Code status was discussed and her code was changed to DNR-CCA-DNI. The day of discharge she is still feeling weak but she is adamant that she does not want to go to rehab to gain more strength. - Time Spent with Patient Total time spent providing and/or coordinating discharge services: - Constitutional Vitals: Temp Pulse Resp BP Pulse Ox 98.2 F 51 16 135/63 97 09/21/16 07:53 09/21/16 07:53 09/21/16 07:53 09/21/16 07:53 09/20/16 15:00 General appearance: Present: A&O X 3, underweight, answers questions appropriately - Head Head exam: Present: atraumatic, normocephalic - Eye Eye exam: Present: EOMI, PERRL, sclera anicteric - Neck Neck exam general surgery: Present: supple - Respiratory Respiratory exam: Present: CTAB - Cardiovascular Cardiovascular exam: Present: +S1, +S2, systolic murmur. Absent: tachycardia - GI/Abdominal GI/Abdominal exam: Present: normal bowel sounds, soft, no peritoneal signs. Absent: tenderness - Extremities Exam Extremities exam: Present: warm. Absent: pedal edema, tenderness - Neurological Exam Neurological exam: Present: alert, CN II-XII intact, oriented X3, no focal deficits - Skin Skin exam: Present: dry, warm <Reymundo Hearn - Last Filed: 09/21/16 19:05> Date of Encounter: 09/21/16 - Discharge Diagnosis (1) Acute systolic (congestive) heart failure Status: Acute (2) Severe aortic stenosis Status: Acute (3) Severe mitral regurgitation Status: Acute (4) Chest pain Priority: Secondary Status: Acute Qualifiers: Chest pain type: other chest pain Qualified Code(s): R07.89 - Other chest pain; R07.8 - Other chest pain (5) Essential hypertension Status: Acute (6) Anemia Priority: Secondary Status: Chronic Qualifiers: Anemia type: other cause Other causes of anemia: chronic disease, other Qualified Code(s): D63.8 - Anemia in other chronic diseases classified elsewhere Procedures/tests Complete & Pending: Procedures Performed prior 72 hours Category Date Time Status ECG 12 lead ECG [ECG] AM 0600 Y 09/19/16 06:00 Ordered EV echocardiogram Routine Y 09/19/16 01:51 Completed Date of admission: 09/19/16 16:17 Primary care physician: Marbin Penn MD Consults: 09/19/16 01:47 Consult to Nurse Navigator [CONS] Routine Comment: 09/19/16 11:46 Consult to Cardiology [CONS] Routine Comment: Consulting Provider: Cardiology Ana Reason for Consult: ABNORMAL ECHO Call Completed: Yes 09/19/16 17:20 Consult to Palliative Care [CONS] Routine Comment: Pt wants to be DNR. CHF, Severe , severe MRYoly Consulting Provider: Palliative Care [place] 09/21/16 08:47 Consult to Physical Therapy [CONS] Stat Comment: palliative discharge home, plan of care OT [Consult to Occupational Therapy] [CONS] Stat Comment: palliative discharge home, plan of care Hospital course: Ms. Scott is a 89 year old female - Time Spent with Patient Total time spent providing and/or coordinating discharge services: 28min - Constitutional Vitals: Temp Pulse Resp BP Pulse Ox 98.4 F 58 16 121/61 97 09/21/16 15:26 09/21/16 15:26 09/21/16 15:26 09/21/16 15:26 09/20/16 15:00 - Attending Attestation I examined this patient and my medical decision-making was reviewed with the Resident Physician on 09/21/16. I agree with the documented findings, disposition and treatment plan as described except to the extent set forth below. Ms. Scott feels OK. She is up and about. PT/OT evals done - she wants to go home. Palliative to see. Vitals stable. No fever. Exam Alert. Comfortable Heart reg Lungs clear Plan D/C home Palliative care
--- NOTE | 2016-09-21 14:11 | Physician Discharge Referral ---
Home Health/Hosp Referral Info Transfer to: Home Health (add palliative care) Attending Provider: jonna benedict Provider in Charge Post Discharge: PCP - Diagnosis (1) Acute systolic (congestive) heart failure Priority: Primary Status: Acute (2) Cardiomyopathy Priority: Primary Status: Acute (3) Weakness generalized Priority: Primary Status: Acute (4) Severe protein-calorie malnutrition Priority: Primary Status: Acute (5) Severe aortic stenosis Priority: Primary Status: Acute (6) Severe mitral regurgitation Priority: Primary Status: Acute (7) Essential hypertension Priority: Secondary Status: Acute (8) Atrial fibrillation Priority: Secondary Status: Chronic - Respiratory Orders Smoking Cessation: Smoking cessation has been advised. For more information, call the [place] Tobacco Quit Line at 7-577-AGTU-NOW. - Diet/Nutrition Diet/Nutrition Orders: Regular (plus ensure) - Activity Activity Orders: Ambulate - Services Needed Following services are medically necessary services: Nursing (add palliative), Home Health Aide, Physical Therapy - Transfer Medications Prescriptions: Carvedilol [Coreg] 3.125 mg PO BIDWM #60 tablet Home Medications: Aspirin [Lo-Dose Aspirin EC] 81 mg PO DAILY 03/11/16 [History] TraZODone 100 mg PO HS #0 tablet 03/15/16 [Rx] Amoxicillin [Amoxil] 500 mg PO TID #30 capsule 09/17/16 [Rx] Amiodarone [Cordarone] 200 mg PO DAILY 09/19/16 [History] Furosemide [Lasix] 10 mg PO DAILY 09/19/16 [History] Lisinopril 2.5 mg PO DAILY 09/19/16 [History] Metoprolol XL (24 HR) Succ [Toprol Xl] 50 mg PO DAILY 09/19/16 [History] Potassium Chloride [K-Tab ER] 20 meq PO DAILY 09/19/16 [History] Carvedilol [Coreg] 3.125 mg PO BIDWM #60 tablet 09/21/16 [Rx] Allergies/Adverse Reactions: Allergies gabapentin [From Neurontin] Allergy (Verified 09/18/16 16:40) See Comments allergy listed; pt denies metronidazole [From Vandazole] Allergy (Verified 09/18/16 16:40) See Comments burning sensation. allergy listed; pt denies Bssosic-Tat-Bug Reductase Inhibitor [Statins] Allergy (Verified 09/18/16 16:40) See Comments allergy listed; pt denies Certification: Further, I certify that my clinical findings support that this patient is homebound (i.e. absences from home require considerable and taxing effort and are for medical reasons or islam services or infrequently or short duration when for other reasons) because: Homebound Reason: Patient requires assistance of a person or device to safely leave home, Leaving home requires considerable and taxing effort due to condition, Severity of cardiac or pulmonary status limits activity tolerance Attestation: My signature below is to certify that this patient is under my care and that I, or nurse practitioner, or a physician's photographer's assistant working with me, has a face-to -face encounter with this patient.
[2016-09-21 15:27] VITALS: BP 121/61
== END 2016-09-21 16:52 | disposition home health service (06) | DRG 291 ==
LOC: 2NENU → SUATTDRO 22:17
PROVIDERS: ADMIT Internal Medicine; ATTEND Internal Medicine